=== PATIENT | female | born 1970 | race Caucasian/White ===

== ENCOUNTER → 2016-05-23 | Outpatient (CLI) | payer MEDICAID ==
[~2016-05-23] MED LIST: ACYCLOVIR 400M400 MG PO; CLONAZEPAM0.5 M1 PO; GABAPENTIN 600600 MG PO; GABAPENTIN800 MG PO; HYDROXYZINE 25M25 MG PO; MIRTAZAPINE15 M1 PO; NORCO 325 MG-51 TAB PO; PANTOPRAZOLE SO40 MG PO; PERCOCET 10 MG1 EACH PO; PERCOCET 325 MG1 TA3 PO; PRAZOSIN HCL1 MG PO; PREDNISONE 20MG20 MG PO
[2016-05-23 16:23] LABS: AMPHETAMINES/METAMPHETAMINES NEGATIVE ng/mL (<1000)
[2016-05-29 16:39] LABS: Opiates Negative (Cutoff=100)
== END ==
LOC: LAB 15:15
PROVIDERS: Emergency Medicine
DX: Z79.899 Other long term (current) drug therapy (principal)

== ENCOUNTER → 2016-06-20 | Outpatient (CLI) | payer MEDICAID ==
[2016-06-20 15:45] LABS: AMPHETAMINES/METAMPHETAMINES NEGATIVE ng/mL (<1000)
== END ==
LOC: LAB 13:45
PROVIDERS: Emergency Medicine
DX: Z79.899 Other long term (current) drug therapy (principal)